=== PATIENT | male | born 1975 | race Caucasian/White ===

== ENCOUNTER → 2016-12-27 | Outpatient (CLI) | payer OTHER ==
--- NOTE | 2016-12-27 09:19 | KCIC ---
PROCEDURE AP and lateral lumbar spine radiographs 12/27/2016 HISTORY Low back pain for 5 to 6 months. FINDINGS AP and 2 lateral digital radiographs of the lumbar spine were obtained. Surgical clips are seen within the right upper quadrant of abdomen. The alignment of the lumbar vertebrae is within normal limits. No fracture or subluxation is seen. Degenerative changes are seen involving the lower thoracic and lower lumbar disc spaces consisting vertebral endplate sclerosis and mild anterior vertebral body osteophyte formation. Degenerative changes are seen involving the facet joints of the lower lumbar spine. Surgical clips are seen within the right lower quadrant of the abdomen. IMPRESSION Degenerative changes are seen involving the lower lumbar spine as outlined above. No acute osseous abnormality is seen. Electronically signed by: Aron Mcdonald MD (Dec 27, 2016 09:17:43)
== END | disposition home or self-care (01) ==
LOC: KCIC 08:25
PROVIDERS: ATTEND Family Medicine
DX: M54.5 Low back pain (principal)
CPT/HCPCS: 72100

== ENCOUNTER → 2017-07-15 | Outpatient (CLI) | payer OTHER ==
--- NOTE | 2017-07-15 16:33 | RAD ---
MRI Lumbar Spine without contrast History: Low back pain after fall, bilateral leg weakness Technique: Multiplanar, multi sequential noncontrast MR imaging was performed of the lumbar spine. Contrast: None Comparison: None Findings: There is mild motion degradation. Lumbar vertebral body stature and AP alignment are maintained. Conus terminates at L1-2. There is [id number] degenerative disc disease greater posteriorly at L5-S1, mild disc desiccation L4-5. There is no significant marrow edema. There is nonspecific edema of the posterior subcutaneous fat of the lower back. L3-L4: Spinal canal and neural foramina are adequate. There is negligible disc osteophyte complex. There is mild prominence of posterior epidural fat. L4-L5: There is mild prominence of posterior epidural fat. There is negligible disc osteophyte complex. Neural foramina and spinal canal are adequate. L5-S1: There is prominence of epidural fat circumferentially, near complete effacement of subarachnoid space. There is no displacement of the descending S1 nerve roots. There is negligible disc osteophyte complex and bulge. There is mild neural foramina compromise bilaterally. There is mild facet degenerative change. Impression: 1. There is mild/moderate degenerative disc disease L5-S1, multilevel mild spondylosis. 2. There is no significant lumbar spinal stenosis. Epidural lipomatosis results in near complete effacement of the subarachnoid space L5-S1 into the sacrum. 3. There is mild bilateral L5-S1 neural foramina compromise. Electronically signed by: Lalo Goins MD (07/15/2017 4:29 PM) [facility]
== END | disposition home or self-care (01) ==
LOC: MRI 15:47
PROVIDERS: ATTEND Family Medicine
DX: M51.36 Other intervertebral disc degeneration, lumbar region (principal); M25.78 Osteophyte, vertebrae
CPT/HCPCS: 72148

== ENCOUNTER → 2017-07-28 | Outpatient (CLI) | payer OTHER ==
[~2017-07-28] MED LIST: ASPI-482 PO; CLON0.5T3 PO; CYCL10TA2 PO; CYCL5TAB PO; DIPH25CA58 PO; ESCITALOPRAM OX10 MG PO; IBUP-1060 PO; LEVO25TA4 PO; LEVO50TA5 PO; LISI10TA2 PO; METF500T4 PO; METO25TA4 PO; OXYC-327 PO; PREG150C PO; ZOLP5TAB PO
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
== END | disposition home or self-care (01) ==
LOC: PNCL 08:26
PROVIDERS: ATTEND Anesthesiology
DX: M51.36 Other intervertebral disc degeneration, lumbar region (principal); E11.9 Type 2 diabetes mellitus without complications; I10 Essential (primary) hypertension; M79.604 Pain in right leg
CPT/HCPCS: 99214

== ENCOUNTER → 2017-08-16 | Outpatient (CLI) | payer OTHER ==
[~2017-08-16] MED LIST changes: +IOHEXOL 180 MG/ML 10 ML VIAL. ONE; +methylPREDNISolone ACETATE 40 MG/ML VIAL. ONE; +methylPREDNISolone ACETATE 80 MG/ML VIAL. ONE
--- NOTE | 2017-08-16 13:03 | PAIN ---
DATE OF SERVICE: 08/16/2017 DATE OF SERVICE: 08/16/2017 DIAGNOSES: Lumbar radiculopathy with lumbar degenerative disk disease. HISTORY OF PRESENT ILLNESS: The patient is a 41-year-old male who returns for followup status post initial evaluation and preauthorization for lumbar epidural steroid injection today. The patient reports no new significant changes, doing better with the Medrol Dosepak, which we had given on his last visit. The patient reports the pain was down by about 50% with this on its own. The patient reports still significant pain in the low back, slightly more on the right side than the right lower extremity with some radiation, but after the Medrol Dosepak, it is mainly staying in his back now. The patient reports it is 8 on a scale of 10 at its worst, 6 on average and is currently 3, which is its least. The patient reports a sharp shooting, occasionally dull and aching, but better with sitting or lying down, awakens him from sleep occasionally, but not every night. The patient reports it is better with sitting, lying down, generally worse with walking and standing. The patient reports no new motor or sensory deficits, no new bowel or bladder incontinence or other complaints. PHYSICAL EXAMINATION: VITAL SIGNS: The patient's blood pressure 139/89, pulse 101, respirations 18, temperature is 98.0 degrees Fahrenheit. Height is 5 feet 8 inches, weight is 268 pounds. GENERAL: The patient is awake, alert, oriented, appropriate, very pleasant demeanor. HEENT: Head shows normocephalic, atraumatic. Extraocular movements are intact and symmetrical. Oral cavity, mucous membranes are moist and pink. Dentition is intact. NECK: Shows anterior throat supple without palpable lymphadenopathy noted. Swallow reflex is symmetrical. CHEST: Shows normal on inspection. Breath sounds clear to auscultation bilaterally. HEART: Shows S1 and S2 clear. ABDOMEN: Obese, soft, nontender, nondistended. No palpable organomegaly is noted. No rebound or guarding demonstrated. BACK: Shows spine grossly in midline, no previous bruises, lesions, rashes or scars are noted. Paraspinous musculature in lumbar distribution shows symmetrical, with palpation shows moderate tenderness with palpation bilaterally, but only diffusely in the lower lumbar distribution without significant radiation or asymmetry. EXTREMITIES: Lower extremities showed deep tendon reflexes at 2+ in the patellar, 1+ tendo-calcaneus tendons are equal. Motor exam is strong with 5/5 dorsiflexion and extension as well as quadriceps and hamstring flexion and are symmetrical and equal bilaterally as well. Options were discussed with the patient and the patient's old chart was reviewed as his current medication regimen updated. Current review of systems updated today as well. We will proceed with a lumbar epidural steroid injection today with fluoroscopic guidance. Risks were again discussed including, but not limited to bleeding, infection, possibility of epidural hematoma, subsequent neurologic compromise, dural puncture, headaches, spinal cord and/or nerve damage, side effects of steroid medication and poor results regarding pain control. The patient understands and wishes to proceed. The patient will return to clinic in approximately 2 weeks for followup. She was counseled on return appointment, activity level and side effects to be aware of. DIAGNOSIS: Lumbar radiculopathy with lumbar degenerative disk disease. PROCEDURES: Lumbar epidural steroid injection in translaminar approach at L5-S1 level using C-arm fluoroscopic guidance under sterile prep and drape, using local anesthetic. MEDICATIONS INJECTED: A total of 120 mg Depo-Medrol plus 10 mL preservative-free normal saline and 2 mL of Isovue for contrast. CONDITION AT DISCHARGE: Stable. The patient tolerated procedure well, had no complications. MARISOL MOJIAC MD DR: GREG/gregorio JOB#: [id number] / [id number]
== END | disposition home or self-care (01) ==
LOC: PNCL 10:31
PROVIDERS: ATTEND Anesthesiology
DX: M51.16 Intervertebral disc disorders with radiculopathy, lumbar region (principal); I10 Essential (primary) hypertension; E66.9 Obesity, unspecified; E11.9 Type 2 diabetes mellitus without complications
CPT/HCPCS: 62323; J1030; J1040

== ENCOUNTER → 2017-08-30 | Outpatient (CLI) | payer OTHER ==
[~2017-08-30] MED LIST changes: -IOHEXOL 180 MG/ML 10 ML VIAL. ONE; -methylPREDNISolone ACETATE 40 MG/ML VIAL. ONE; -methylPREDNISolone ACETATE 80 MG/ML VIAL. ONE
--- NOTE | 2017-08-30 12:28 | PAIN ---
DATE OF SERVICE: 08/30/2017 DIAGNOSIS: Lumbar radiculopathy with lumbar degenerative disk disease. HISTORY OF PRESENT ILLNESS: The patient is a 42-year-old male who returns for followup status post lumbar epidural steroid injection x 1. The patient reports about 90% improvement since the ejection after about 2 days, said the pain was almost completely gone following the injection. The patient reports his pain as a 5 on a scale of 10 at its worst, 3 on average, it is a 3 today. The patient reports it is just an aching pain in the low back, but it is only there intermittently, it is not present at all times. The patient reports sleeping better at night. He has been increasing activity, actually he was playing basketball with some friends without difficulty or pain increasing. The patient reports no new motor or sensory deficits. No new bowel or bladder incontinence or other complaints. Sleeping well at night. No new findings. PHYSICAL EXAMINATION: VITAL SIGNS: Blood pressure 144/97, pulse 83, respirations 18, temperature is 98.1 degrees Fahrenheit, height is 5 feet 8 inches, weighs 263 pounds. GENERAL: The patient is awake, alert, oriented, appropriate, very pleasant demeanor. HEENT: Head shows normocephalic, atraumatic. Extraocular movements are intact and symmetrical. The patient wearing eyeglasses. Oral cavity, mucous membranes moist and pink. Dentition is with some missing, but otherwise intact. NECK: Shows anterior throat supple. CHEST: Shows breath sounds clear to auscultation bilaterally. HEART: Shows S1, S2 clear. No murmurs are ausculated. ABDOMEN: Soft, nontender, nondistended. No palpable organomegaly. There is no rebound or guarding demonstrated. Abdomen soft and obese as noted. BACK: Shows spine grossly in the midline. Lumbar paraspinous musculature shows symmetrical. With palpation shows only very mild tenderness, with deep palpation in lower lumbar distribution bilaterally but only very diffusely and only very mild. Full rotational motion of lumbar spine both laterally as well as extension and flexion without difficulty. No tenderness over sacrum, sacroiliac region. Lower extremities show deep tendon reflexes 2+ in the patellar, 1+ in tendo calcaneus tendons and equal. Motor exam is strong with 5/5 dorsiflexion, extension, quadriceps, hamstring flexion and are symmetrical as well. Peripheral pulses are 1+ posterior tibial bilaterally. No peripheral edema is noted. Options were discussed with the patient. The patient's old chart was reviewed as his current medication regimen updated. Current review of systems updated today as well and we will hold on any further injections at this time as patient is doing fairly well. We encouraged him to increase his activity as tolerated and also encouraged weight loss as he has been trying to do this as well and has lost several pounds in his last visit. He will follow up with his primary physician regarding his hemoglobin A1c, also has some lab work pending at his primary's office as well. He will follow up at our office on as-needed basis. The patient was instructed to call if pain begins to return, to get ahead of it, so that it does get back to baseline. The patient understands and agrees and will follow up as scheduled. MARISOL MOJICA MD DR: GREG/gregorio JOB#: [id number] / [id number]
== END | disposition home or self-care (01) ==
LOC: PNCL 09:21
PROVIDERS: ATTEND Anesthesiology
DX: M51.16 Intervertebral disc disorders with radiculopathy, lumbar region (principal)
CPT/HCPCS: 99212

== ENCOUNTER → 2018-01-31 | Outpatient (CLI) | payer OTHER | END | disposition home or self-care (01) | LOC: PCVCIMAG 09:50 | DX: I10 Essential (primary) hypertension (principal); E11.9 Type 2 diabetes mellitus without complications; R07.9 Chest pain, unspecified; E78.5 Hyperlipidemia, unspecified | CPT/HCPCS: 93306; 93351 ==